=== PATIENT | female | born 1955 ===

== ENCOUNTER 2024-01-22 06:30 | Outpatient (RCR) | payer MEDICARE, OTHER, SELFPAY | END 2024-02-20 23:59 | disposition home or self-care (01) | LOC: GPT 06:30 | PROVIDERS: Visit Provider Emergency Medicine | DX: M25.562 Pain in left knee (principal) | CPT/HCPCS: 97110; 97112; 97140; 97161 ==

== ENCOUNTER 2024-02-21 06:00 | Outpatient (RCR) | payer MEDICARE, OTHER, SELFPAY | END 2024-03-22 23:59 | disposition home or self-care (01) | LOC: GPT 06:00 | PROVIDERS: Visit Provider Emergency Medicine | DX: M25.562 Pain in left knee (principal) | CPT/HCPCS: 97110; 97112; 97140; 97530 ==

== ENCOUNTER 2024-03-27 12:15 | Outpatient (RCR) | payer MEDICARE, OTHER, SELFPAY | END 2024-04-21 23:59 | disposition home or self-care (01) | LOC: GPT 12:15 | PROVIDERS: Visit Provider Emergency Medicine | DX: M25.562 Pain in left knee (principal) | CPT/HCPCS: 97110; 97530 ==

== ENCOUNTER 2024-04-22 06:00 | Outpatient (RCR) | payer MEDICARE, OTHER, SELFPAY | END 2024-04-23 23:59 | disposition home or self-care (01) | LOC: GPT 06:00 | PROVIDERS: Visit Provider Emergency Medicine | DX: M25.562 Pain in left knee (principal) | CPT/HCPCS: 97110; 97530 ==